=== PATIENT | male | born 1980 | race Caucasian/White ===

== ENCOUNTER 2019-08-08 18:13 | Emergency (ER) | payer MEDICAID, OTHER ==
[~2019-08-08] VITALS: Ht 178 cm; Wt 82.0 kg
--- NOTE | 2019-08-08 18:36 | ED Lower Extremity ---
General Chief Complaint: Lower Extremity Stated Complaint: LEFT FOOT INJURY Nursing Triage Note: c/o L ankle pain after twisting ankle Nursing Sepsis Screen: No Definite Risk Source: patient History of Present Illness Date Seen by Provider: Aug 08, 2019 Time Seen by Provider: 18:31 Initial Comments 39-year-old male a few hours ago stepped into a hole causing an inversion injury is to his left ankle has swelling over the lateral malleolus and a little bit anterior as well Describes prior similar injuries but unclear whether he's ever had any fractures Allergies and Home Medications Home Medications Ibuprofen 800 Mg Tablet, 800 MG PO Q8H PRN for PAIN Prescribed by: NEREIDA LANCE on 08/08/19 1848 Patient Home Medication List Home Medication List Reviewed: Yes Review of Systems Constitutional: no symptoms reported EENTM: no symptoms reported Respiratory: no symptoms reported Cardiovascular: no symptoms reported Gastrointestinal: no symptoms reported Genitourinary: no symptoms reported Skin: no symptoms reported Past Snxprwk-Bonszr-Tcdahg Hx Patient Social History Alcohol Use: Denies Use Recreational Drug Use: Yes Drug of Choice: THC Smoking Status: Current Everyday Smoker Type Used: Cigarettes Recent Foreign Travel: No Contact w/Someone Who Travel: No Recent Infectious Disease Expo: No Physical Exam Vital Signs Vital Signs - First Documented 08/08/19 18:24 Temp 36.5 Pulse 91 Resp 18 B/P (MAP) 183/100 (127) Pulse Ox 98 Capillary Refill : Less Than 3 Seconds Height, Weight, BMI Height: '" Weight: lbs. oz. kg; 25.00 BMI Method: General Appearance: WD/WN, mild distress HEENT: PERRL/EOMI Neck: supple Cardiovascular: regular rate, rhythm Respiratory: lungs clear Gastrointestinal: non tender, soft Ankles: left ankle ecchymosis (she has significant swelling some ecchymosis right over the lateral malleolus and to a lesser extent anterior to this area and the foot is unremarkable all distal neurovascular intact), left ankle soft tissue tenderness, left ankle swelling There is soft tissue swelling and ecchymosis over the lateral malleolus and to a lesser extent slightly distal and anterior Progress/Results/Core Measures Results/Orders My Orders Orders - NEREIDA LANCE MD Ankle 3 View Left (08/08/19 18:30) Crutches (08/08/19 18:49) Air Strup Ankle Brace (08/08/19 18:49) Vital Signs/I&O 08/08/19 18:24 Temp 36.5 Pulse 91 Resp 18 B/P (MAP) 183/100 (127) Pulse Ox 98 Blood Pressure Mean: 127 Progress Progress Note : Progress Note Left ankle x-ray - no fracture appreciated Departure Impression Primary Impression: Sprain and strain of ankle Disposition: HOME, SELF-CARE Condition: Stable Departure-Patient Inst. Decision time for Depature: 18:48 Referrals: NO,LOCAL PHYSICIAN (PCP/Family) Primary Care Physician Patient Instructions: Ankle Sprain (DC) Add. Discharge Instructions: Use a splint and crutches In about one week should be able to walk without crutches No sports or strenuous activities for 1 month All discharge instructions reviewed with patient and/or family. Voiced understanding. Scripts Ibuprofen (Ibuprofen) 800 Mg Tablet 800 MG PO Q8H PRN for PAIN, #15 TAB 0 Refills Prov: NEREIDA LANCE MD 08/08/19 NEREIDA LANCE MD Aug 08, 2019 18:36
--- NOTE | 2019-08-08 18:45 | Diagnostic Imaging Report ---
INDICATION: Fell, twisted left ankle, swelling. FINDINGS: 3 views of the left ankle demonstrate soft tissue swelling and joint effusion. No fracture or dislocation is present. IMPRESSION: There is soft tissue swelling and joint effusion of the left ankle with no osseous abnormalities. Dictated by: Dictated on workstation # [id number]
[2019-08-08] MEDS ORDERED: IBUP-1780 PO (18:48)
[2019-08-08 19:00] VITALS: BP 183/100
--- OUTSIDE RECORDS SUMMARY | 2019-08-12 03:35 | XMS REPORT | Continuity of Care Document ---
Author Organization Unknown Address Unknown Phone Unavailable Allergies Active Description Code Type Severity Reaction Onset Reported/Identified Relationship to Patient Clinical Status Yes No Known Allergies No Known Allergies Drug Allergy Unknown N/A 03/12/2019 Medications There is no data. Problems Date Dx Coded Attending Type Code Diagnosis Diagnosed By 03/12/2019 Galindo Arriola I16.0 Hypertensive urgency Galindo Arriola 03/12/2019 Galindo Arriola J01.90 Sinusitis, acute Galindo Arriola 03/12/2019 Galindo Arriola K12.0 Oral aphthae Galindo Arriola Procedures Code Description [place] [address] OFFI CE VT-NEW LV 3 Galindo Arriola 03/12/2019 S9088 URGE CARE SERVICES Galindo Arriola 03/12/2019 Results Test Result Range METABOLIC PANEL, BASIC - 03/12/19 14:16 POTASSIUM 4.4 mmol/L 3.5-5.3 EST GFR (MDRD) > 60 mL/min > 59 ANION GAP 9 mmol/L 5-15 EST CrCl (CG) > 60 mL/min > 59 GLUCOSE 104 mg/dL 70-99 CALCIUM 9.6 mg/dL 8.5-10.1 BLOOD UREA NITROGEN 7 mg/dL 7-20 CREATININE 0.92 mg/dL 0.70-1.30 SODIUM 137 mmol/L 135-148 CHLORIDE 101 mmol/L 98-110 CARBON DIOXIDE 27 mmol/L 21-32 Encounters ACCT No. Visit Date/Time Discharge Status Pt. Type Provider Facility Loc./Unit Complaint [id number] 03/12/2019 12:27:00 03/12/2019 23:5 9:59 CLS Outpatient [facility] 03/21/2019 13:39:22 ACT Document Registration [id number] 08/08/2019 18:17:00 020 19:00:00 DIS Emergency CASI KING, NEREIDA Browne [facility] ER FS LEFT FOOT INJURY [id number] 03/12/2019 13:12:00 019 15:16:00 DIS Emergency Jason KING, [facility] JOSE M
== END 2019-08-08 19:00 | disposition home or self-care (01) ==
LOC: ER FS 18:17
DX: S93.402A Sprain of unspecified ligament of left ankle, initial encounter (principal); S96.912A Strain of unspecified muscle and tendon at ankle and foot level, left foot, initial encounter; F17.210 Nicotine dependence, cigarettes, uncomplicated; X50.1XXA Overexertion from prolonged static or awkward postures, initial encounter
CPT/HCPCS: 73610